=== PATIENT | male | born 1990 | race Two or more races ===

== ENCOUNTER 2021-04-19 08:01 | Inpatient (IN) | payer MEDICAID ==
[~2021-04-19] VITALS: Ht 172.7 cm; Wt 47.2 kg
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
--- NOTE | 2021-04-19 08:19 | NUR ---
UNABLE TO ESTABLISHED IV LINE. AWARE.
[2021-04-19] MEDS ORDERED: THIAMINE HCL 100 MG TABLET PO ONE (08:30)
[2021-04-19] MEDS ORDERED: IV NS 0.9% 1,000 ML IV ONE ×2 (08:30→14:30)
[2021-04-19] MEDS ORDERED: FOLIC ACID 1 MG TABLET PO ONE (08:30)
--- NOTE | 2021-04-19 08:33 | NUR ---
THE PATIENT IS TAKEN TO CT [facility]IA [facility]
--- NOTE | 2021-04-19 09:00 | NUR ---
THE PATIENT IS BACK FROM CT VIA [facility]
--- NOTE | 2021-04-19 09:11 | NUR ---
URINE COLLECTED AND SENT TO THE LAB
--- NOTE | 2021-04-19 09:30 | NUR ---
FOLATE AND THIAMINE NOT ADMINISTER YET DUE TO PATIENT IS SLEEPING. WILL OFFER THE MED ONCE THE PATIENT IS AWAKE. DR GUTHRIE AWARE.
[2021-04-19] MEDS ORDERED: THIAMINE HCL 100 MG TABLET ONE (09:32)
[2021-04-19] MEDS ORDERED: FOLIC ACID 1 MG TABLET ONE (09:32)
[2021-04-19 09:58] LABS: BILIRUBIN,URINE NEGATIVE (NEGATIVE); COLOR,URINE YELLOW (YELLOW); LEUKOCYTE ESTERASE ,URINE NEGATIVE (NEGATIVE); NITRITE, URINE NEGATIVE (NEGATIVE); PROTEIN,URINE NEGATIVE (NEGATIVE); UGLUCOSE >=1000 mg/dL (NEGATIVE); UROBILINOGEN,URINE 0.2 EU/dL (0.2)
[2021-04-19 11:57] LABS: BACTERIA,URINE None seen /HPF (None Seen); RBC,URINE 0-2 /HPF (0-2); SQUAMOUS EPITHELIAL CELL,UR None Seen /HPF (None Seen); WBC,URINE NONE SEEN /HPF (0-3)
[2021-04-19 12:10] LABS: BASOPHILS % (AUTO) 0.1 % (0.0-2.0); HEMATOCRIT 36 % (39-51); HEMOGLOBIN 11.4 g/dL (13.5-17.5); LYMPHOCYTES # (AUTO) 1.2 K/uL (0.8-4.8); LYMPHOCYTES % (AUTO) 17.6 % (20.0-44.0); MEAN CORPUSCULAR HGB CONC 32 g/dl (31.0-36.0); MEAN CORPUSCULAR VOLUME 82 fL (80-96); MONOCYTES # (AUTO) 0.4 K/uL (0.1-1.30); MONOCYTES % (AUTO) 5.9 % (2.0-12.0); NEUTROPHILS # (AUTO) 5.3 K/uL (1.8-8.9); NEUTROPHILS % (AUTO) 76.4 % (43.0-81.0); PLATELET COUNT (AUTO) 143 K/uL (150-450); RED BLOOD CELL COUNT(AUTO) 4.35 MIL/uL (4.5-6.0); WHITE BLOOD COUNT (AUTO) 6.9 K/uL (4.3-11.0)
[2021-04-19 12:58] LABS: ALANINE AMINOTRANSFERASE 125 U/L (12-78); ALBUMIN 3.2 g/dL (3.4-5.0); ALCOHOL, BLOOD 58 mg/dL (0-0); ASPARTATE AMINOTRANSFERASE 84 U/L (15-37); BILIRUBIN,DIRECT 0.2 mg/dL (0.0-0.2); BILIRUBIN,TOTAL 0.3 mg/dL (0.2-1.0); CALCIUM, SERUM 8.2 mg/dL (8.5-10.1); CARBON DIOXIDE 21 mmol/L (21-32); CHLORIDE 94 mmol/L (98-107); CREATININE 0.9 mg/dL (0.6-1.3); POTASSIUM 3.4 mmol/L (3.5-5.1); SODIUM SERUM 132 mmol/L (136-145); TOTAL PROTEIN, SERUM 8.2 g/dL (6.4-8.2); UREA NITROGEN, BLOOD 14 mg/dL (7-18)
[2021-04-19 13:37] LABS: ALKALINE PHOSPHATASE 1235 U/L (46-116); GLUCOSE 516 mg/dL (74-106)
--- NOTE | 2021-04-19 15:25 | NUR ---
COVID ANTIGEN SWAB DONE AND SENT TO THE LAB
[2021-04-19] MEDS ORDERED: INSULIN REGULAR, HUMAN 100 UNIT/ML 10 ML VIAL SQ ONE (15:30)
[2021-04-19] MEDS ORDERED: CEFTRIAXONE 1 G in IV D5W 50 ML IV ONE (16:00)
[2021-04-19] MEDS ORDERED: VANCOMYCIN 1 GM in IV D5W 250 ML IV ONE (16:00)
[2021-04-19] MEDS ORDERED: CEFTRIAXONE 1GM BAG (ER ONLY) 50 ML IV ONE (16:11)
[2021-04-19 16:53] LABS: ACETAMINOPHEN < 2 ug/ml (10-30)
--- NOTE | 2021-04-19 18:27 | NUR ---
ROOM 118-1
[2021-04-19] MEDS ORDERED: ZOLPIDEM TARTRATE 5 MG TABLET PO PRN (18:30)
[2021-04-19] MEDS ORDERED: POTASSIUM CHLORIDE 20 MEQ TAB.PRT.SR PO ONE ×3 (18:30→20:03)
[2021-04-19] MEDS ORDERED: Z GUARD REMEDY 4 OZ OINT TP PRN (18:30)
[2021-04-19] MEDS ORDERED: MAGNESIUM HYDROXIDE 30 ML UDC PO PRN (18:30)
[2021-04-19] MEDS ORDERED: ONDANSETRON HCL/PF 4 MG/2 ML VIAL IVP PRN (18:30)
[2021-04-19] MEDS ORDERED: ACETAMINOPHEN 325 MG TABLET PO PRN (18:30)
--- NOTE | 2021-04-19 19:06 | NUR ---
BLOOD SUGAR CHECK IS 357. DR SCHOFIELD MADE AWARE.
--- NOTE | 2021-04-19 19:14 | NUR ---
DR SCHOFIELD GAVE A VERBAL ORDER FOR PT TO RECIEVED MORPHINE 2MG Q4H PRN
[2021-04-19] MEDS ORDERED: MORPHINE SULFATE INJ 2 MG/ML DISP.SYRIN ONE (19:51)
[2021-04-19] MEDS ORDERED: ONDANSETRON HCL/PF 4 MG/2 ML VIAL ONE (19:51)
[2021-04-19] MEDS: MORPHINE SULFATE INJ 2 MG/ML DISP.SYRIN IV PRN (20:09)
[2021-04-19] MEDS: BLOOD SUGAR DIAGNOSTIC 1 EACH STRIP IN SCH (21:05)
[2021-04-19] MEDS ORDERED: ENOXAPARIN SODIUM 40 MG/0.4 ML DISP.SYRIN SQ ONE (21:06)
[2021-04-19] MEDS ORDERED: INSULIN REGULAR, HUMAN 100 UNIT/ML 10 ML VIAL ONE (21:07)
[2021-04-19] MEDS: ENOXAPARIN SODIUM 40 MG/0.4 ML DISP.SYRIN SQ SCH (21:11)
[2021-04-19] MEDS: INSULIN REGULAR, HUMAN 100 UNIT/ML 3 ML VIAL SQ PRN (21:17)
[2021-04-19] MEDS ORDERED: INSULIN GLARGINE, 100 UNIT/ML CARTRIDGE SQ ONE (23:06)
--- NOTE | 2021-04-19 23:09 | NUR ---
REPORT GIVEN TO LUÍS
[2021-04-19] MEDS: INSULIN GLARGINE, 100 UNIT/ML CARTRIDGE SQ SCH (23:40)
--- NOTE | 2021-04-19 23:53 | NUR ---
PT TRANSFERED PER ACLS PROTOCOL
--- NOTE | 2021-04-19 23:55 | NUR ---
RN NOTES ADMITTED A 31 Y/O MALE PATIENT FROM ER VIA GURNEY A/O X3 ABLE TO MAKE NEEDS KNOW. COVID POSITIVE. VITAL SIGNS TAKEN AND RECORDED AFEBRILE. TRANSFER TO BED SAFELY. WITH IV ACCESS AT R JUGULAR #20 PATENT FLUSHES WELL. BODY ASSESSMENT DONE. IVF STARTED PNS@125CC/HR TOLERATING WELL. PICTURE TAKEN. ALL SAFETY MEASURES IN PLACE AT ALL TIMES. HOB ELEVATED. CALL LIGHT WITHIN REACH. BED ON LOWEST POSITION AND LOCKED. WILL CONTINUE TO MONITOR.
[2021-04-20 00:19] VITALS: BP 133/87
[2021-04-20] MEDS: IV NS 0.9% 1,000 ML IV PRN (00:19)
--- NOTE | 2021-04-20 01:00 | NUR ---
RN NOTES BS 207MG/DL 8UNITS PER SLIDING SCALE. PRN MORPHINE GIVEN. WILL CONTINUE TO MONITOR
[2021-04-20] MEDS: BLOOD SUGAR DIAGNOSTIC 1 EACH STRIP IN SCH ×6 (01:10→22:43)
[2021-04-20] MEDS: INSULIN REGULAR, HUMAN 100 UNIT/ML 3 ML VIAL SQ PRN ×6 (01:11→22:43)
[2021-04-20] MEDS: MORPHINE SULFATE INJ 2 MG/ML DISP.SYRIN IV PRN ×3 (01:14→13:46)
[2021-04-20 04:00] VITALS: BP 100/71
[2021-04-20] MEDS: MAG HYDROX/AL HYDROX/SIMETH 30 ML UDC PO PRN ×2 (04:40→15:49)
--- NOTE | 2021-04-20 06:45 | NUR ---
RN NOTES PATIENT REMAINS STABLE NO SIGNIFICANT CHANGES IN HEALTH CONDITION. ALL DUE MEDS GIVEN ORDERED. STILL WITH ONGOING IVF OF NS @125ML/HR TOLERATING WELL. ALL NEEDS ATTENDED PROMPTLY. ALL SAFETY MEASURES IN PLACE AT ALL TIMES. CALL LIGHT WITHIN REACH. BED ON LOWEST POSITION AND LOCKED. ENDORSED
[2021-04-20 08:00] VITALS: BP 117/71
[2021-04-20 08:16] LABS: BASOPHILS % (AUTO) 0.1 % (0.0-2.0); HEMATOCRIT 36 % (39-51); HEMOGLOBIN 11.8 g/dL (13.5-17.5); LYMPHOCYTES # (AUTO) 1.7 K/uL (0.8-4.8); LYMPHOCYTES % (AUTO) 28.6 % (20.0-44.0); MEAN CORPUSCULAR HGB CONC 33 g/dl (31.0-36.0); MEAN CORPUSCULAR VOLUME 81 fL (80-96); MONOCYTES # (AUTO) 0.4 K/uL (0.1-1.30); MONOCYTES % (AUTO) 6.4 % (2.0-12.0); NEUTROPHILS # (AUTO) 3.8 K/uL (1.8-8.9); NEUTROPHILS % (AUTO) 64.9 % (43.0-81.0); PLATELET COUNT (AUTO) 139 K/uL (150-450); RED BLOOD CELL COUNT(AUTO) 4.45 MIL/uL (4.5-6.0); WHITE BLOOD COUNT (AUTO) 5.9 K/uL (4.3-11.0)
[2021-04-20] MEDS: FOLIC ACID 1 MG TABLET PO SCH (09:01)
[2021-04-20] MEDS: PANTOPRAZOLE 40 MG TABLET.DR PO SCH (09:01)
[2021-04-20] MEDS: THIAMINE HCL 100 MG TABLET PO SCH (09:02)
[2021-04-20 09:21] LABS: ALBUMIN 2.5 g/dL (3.4-5.0); BILIRUBIN,DIRECT 0.2 mg/dL (0.0-0.2); BILIRUBIN,TOTAL 0.3 mg/dL (0.2-1.0); CALCIUM, SERUM 7.6 mg/dL (8.5-10.1); CREATININE 0.6 mg/dL (0.6-1.3); MAGNESIUM 1.9 mg/dL (1.8-2.4); PHOSPHORUS 2.9 mg/dL (2.5-4.9); POTASSIUM 3.4 mmol/L (3.5-5.1); TOTAL PROTEIN, SERUM 6.6 g/dL (6.4-8.2)
[2021-04-20 16:00] VITALS: BP 100/71
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
[2021-04-20] MEDS: LORAZEPAM INJ 2 MG/ML VIAL IV PRN (18:04)
[2021-04-20] MEDS: CHLORDIAZEPOXIDE HCL 5 MG CAPSULE PO SCH (18:04)
--- NOTE | 2021-04-20 18:30 | NUR ---
RN NOTE BS 458- [address] SCHOFIELD.
--- NOTE | 2021-04-20 19:50 | NUR ---
RN OPENING NOTES PT RESTING IN BED, ROOM AIR SATURATING 96%, WITH NO LABOR BREATHING. IV ACCESS AT R JUGULAR #20 PATENT FLUSHES WELL. BODY ASSESSMENT DONE. IVF PNS@125CC/HR TOLERATING WELL.ALL ISOLATION PRECAUTIONS TAKEN. ALL SAFETY MEASURES IN PLACE AT ALL TIMES. HOB ELEVATED. CALL LIGHT WITHIN REACH. BED ON LOWEST POSITION AND LOCKED. WILL CONTINUE TO MONITOR.
[2021-04-20] MEDS: INSULIN GLARGINE, 100 UNIT/ML CARTRIDGE SQ SCH (22:39)
[2021-04-20] MEDS: ENOXAPARIN SODIUM 40 MG/0.4 ML DISP.SYRIN SQ SCH (22:41)
[2021-04-21] VITALS: BP 95/56
[2021-04-21] MEDS: INSULIN REGULAR, HUMAN 100 UNIT/ML 3 ML VIAL SQ PRN ×4 (00:37→22:15)
[2021-04-21] MEDS: BLOOD SUGAR DIAGNOSTIC 1 EACH STRIP IN SCH ×6 (00:38→22:14)
[2021-04-21] MEDS: LORAZEPAM INJ 2 MG/ML VIAL IV PRN ×4 (00:43→19:51)
[2021-04-21] MEDS: IV NS 0.9% 1,000 ML IV PRN ×3 (02:51→22:51)
[2021-04-21] MEDS: DEXTROSE 50%-WATER 50 ML DISP.SYRIN IV PRN ×2 (05:21→06:13)
--- NOTE | 2021-04-21 05:21 | NUR ---
RN NOTE BG WAS 39 DEXTROSE 50 GIVEN
--- NOTE | 2021-04-21 05:51 | NUR ---
RN NOTE REASSESED PATIENTS BG , IT WAS 161. WILL CONTINUE TO MONITOR PATIENT AND ENDORSE TO AM NURSE.
--- NOTE | 2021-04-21 07:45 | NUR ---
RN OPENING NOTES RECEIVED PATIENT AWAKE, ALERT/ORIENTED X 2-3. PATIENT ON ROOM AIR. BREATHING EVEN AND UNLABORED. NO SOB OR ANY ACUTE DISTRESS NOTED. IV ACCESS ON RIGHT NECK #20G, PATENT AND INTACT, INFUSING NS AT 125 ML/HR. ALL APPLICABLE ISOLATION PRECAUTIONS IN PLACE. ALL SAFETY MEASURES IN PLACED. HOB ELEVATED. BED IN LOCKED AND LOWEST POSITION WITH SIDERAILS UP, CALL LIGHT WITHIN REACH. WILL CONTINUE TO MONITOR PATIENT ACCORDINGLY.
[2021-04-21 08:00] VITALS: BP 104/77
--- NOTE | 2021-04-21 08:30 | NUR ---
RN CLOSING NOTE ALL PATIENT NEEDS MET, KEPT PATIENT DRY AND CLEAN. ALL ACCU CHECKS PERFORMED, INSULIN GIVEN AND ALSO DEXTROSE 50 GIVEN WHEN BLOOD GLUCOSE WAS 39. COMMUNICATED ALL PATIENT CHANGES WITH ONCOMING AM NURSE. ALL ISOLATION PRECAUTIONS TAKEN ALONG WITH ENVIRONMENTAL SAFETY. WILL ENDORSE CARE TO AM NURSE.
[2021-04-21] MEDS: CHLORDIAZEPOXIDE HCL 5 MG CAPSULE PO SCH ×3 (08:43→16:41)
[2021-04-21] MEDS: PANTOPRAZOLE 40 MG TABLET.DR PO SCH (08:44)
[2021-04-21] MEDS: THIAMINE HCL 100 MG TABLET PO SCH (08:44)
[2021-04-21] MEDS: FOLIC ACID 1 MG TABLET PO SCH (08:44)
[2021-04-21] MEDS: NICOTINE PATCH (21MG) 21 MG PATCH.TD24 TD SCH (08:44)
[2021-04-21 16:00] VITALS: BP 101/64
--- NOTE | 2021-04-21 19:15 | NUR ---
RN CLOSING NOTES PATIENT REMAINS IN STABLE CONDITION THROUGH SHIFT. NO SIGNIFICANT CHANGES THROUGHOUT SHIFT. NO SOB OR ACUTE DISTRESS NOTED ON ROOM AIR, TOLERATING WELL SATURATION 98%. IV ACCESS ON RIGHT IJ #20, PATENT AND INTACT INFUSING NS @ 125 ML/HR. DENIES ANY PAIN/DISCOMFORT. KEPT PATIENT CLEAN,DRY AND COMFORTABLE. ACCU-CHECKS DONE, INSULIN COVERAGE GIVEN PER ORDERED. ALL MEDS GIVEN ORDERED. ALL NEEDS ATTENDED. ALL APPLICABLE ISOLATION PRECAUTIONS MAINTAINED. ALL SAFETY MEASURES IN PLACE. HOB ELEVATED, BED LOCKED AND IN LOWE POSITION WITH SIDERAILS UP, CALL LIGHT WITHIN REACH OF PATIENT. WILL ENDORSE TO ONCOMING NURSE FOR CONTINUITY OF CARE.
[2021-04-21 20:00] VITALS: BP 90/54
--- NOTE | 2021-04-21 20:15 | NUR ---
RN NOTE PATIENT AWAKE, ALERT AND ORIENTED X2-3. NO S/S OF ANY RESPIRATORY DISTRESS. IV ACCESS ON RIGHT IJ #20G, PATENT AND INTACT, INFUSING NS AT 125 ML/HR. PATIENT REQUESTED FOR ATIVAN, ADMINISTERED ATIVAN PRN ORDERED. WARM BLANKET GIVEN. BED LOCKED AND IN LOWEST POSITION. CALL LIGHT WITHIN REACH. ALL NEEDS ANTICIPATED.
[2021-04-21 20:41] LABS: BASOPHILS % (AUTO) 0.2 % (0.0-2.0); EOSINOPHILS % (AUTO) 0.1 % (0.0-6.0); HEMATOCRIT 35 % (39-51); HEMOGLOBIN 11.3 g/dL (13.5-17.5); LYMPHOCYTES # (AUTO) 1.8 K/uL (0.8-4.8); LYMPHOCYTES % (AUTO) 39.4 % (20.0-44.0); MEAN CORPUSCULAR HGB CONC 33 g/dl (31.0-36.0); MEAN CORPUSCULAR VOLUME 82 fL (80-96); MONOCYTES # (AUTO) 0.4 K/uL (0.1-1.30); MONOCYTES % (AUTO) 9.5 % (2.0-12.0); NEUTROPHILS # (AUTO) 2.3 K/uL (1.8-8.9); NEUTROPHILS % (AUTO) 50.8 % (43.0-81.0); PLATELET COUNT (AUTO) 140 K/uL (150-450); RED BLOOD CELL COUNT(AUTO) 4.22 MIL/uL (4.5-6.0); WHITE BLOOD COUNT (AUTO) 4.6 K/uL (4.3-11.0)
[2021-04-21 21:47] LABS: CALCIUM, SERUM 7.3 mg/dL (8.5-10.1); CREATININE 0.6 mg/dL (0.6-1.3)
[2021-04-21 21:48] LABS: POTASSIUM 2.8 mmol/L (3.5-5.1)
[2021-04-21 21:53] LABS: ALBUMIN 2.6 g/dL (3.4-5.0); BILIRUBIN,DIRECT 0.1 mg/dL (0.0-0.2); BILIRUBIN,TOTAL 0.2 mg/dL (0.2-1.0); TOTAL PROTEIN, SERUM 6.9 g/dL (6.4-8.2)
[2021-04-21 22:00] LABS: MAGNESIUM 1.9 mg/dL (1.8-2.4); PHOSPHORUS 2.5 mg/dL (2.5-4.9)
[2021-04-21] MEDS ORDERED: diphenhydrAMINE HCL ELIX 25 MG/10 ML UDC PO PRN (22:00)
[2021-04-21] MEDS ORDERED: POTASSIUM CHLORIDE 20 MEQ TAB.PRT.SR PO ONE (22:00)
--- NOTE | 2021-04-21 22:00 | NUR ---
Critical K+ 2.8 relayed to MARINO Caceres via phone. Awaiting order.
--- NOTE | 2021-04-21 22:11 | NUR ---
Orders obtained from MARINO Caceres, noted and carried out.
[2021-04-21] MEDS: MUPIROCIN OINT 2% 22 GM TUBE NS SCH (22:14)
[2021-04-21] MEDS: INSULIN GLARGINE, 100 UNIT/ML CARTRIDGE SQ SCH (22:16)
[2021-04-21] MEDS: ENOXAPARIN SODIUM 40 MG/0.4 ML DISP.SYRIN SQ SCH (22:45)
[2021-04-22] VITALS: BP 92/51
[2021-04-22] MEDS: BLOOD SUGAR DIAGNOSTIC 1 EACH STRIP IN SCH ×4 (00:57→11:29)
[2021-04-22] MEDS: INSULIN REGULAR, HUMAN 100 UNIT/ML 3 ML VIAL SQ PRN ×4 (00:58→11:32)
[2021-04-22 04:00] VITALS: BP 101/69
--- NOTE | 2021-04-22 06:49 | NUR ---
RN NOTE PATIENT RESTING IN BED, ON ROOM AIR, NO S/S OF ANY RESPIRATORY DISTRESS. IV ACCESS ON RIGHT IJ #20G, PATENT AND INTACT, INFUSING NS AT 125 ML/HR. NO S/S OF ANY HYPOGLYCEMIA/HYPERGLYCEMIA DURING THIS SHIFT. KEPT CLEAN AND DRY. ALL NEEDS ATTENDED PROMPTLY. BED LOCKED AND IN LOWEST POSITION. CALL LIGHT WITHIN REACH. WILL ENDORSE TO AM SHIFT.
--- NOTE | 2021-04-22 07:30 | NUR ---
RN NOTE PATIENT RECEIVED RESTING IN BED, ON ROOM AIR, NO S/S OF ANY RESPIRATORY DISTRESS. IV ACCESS ON RIGHT IJ #20G, PATENT AND INTACT, INFUSING NS AT 125 ML/HR. NO S/S OF ANY HYPOGLYCEMIA/HYPERGLYCEMIA . BED LOCKED AND IN LOWEST POSITION. CALL LIGHT WITHIN REACH. WILL DANITZA.
[2021-04-22 08:00] VITALS: BP 103/64
[2021-04-22] MEDS: PANTOPRAZOLE 40 MG TABLET.DR PO SCH (08:04)
[2021-04-22] MEDS: IV NS 0.9% 1,000 ML IV PRN (08:06)
[2021-04-22] MEDS: THIAMINE HCL 100 MG TABLET PO SCH (08:11)
[2021-04-22] MEDS: FOLIC ACID 1 MG TABLET PO SCH (08:11)
[2021-04-22] MEDS: CHLORDIAZEPOXIDE HCL 5 MG CAPSULE PO SCH ×2 (08:11→12:25)
[2021-04-22] MEDS: MUPIROCIN OINT 2% 22 GM TUBE NS SCH (08:12)
[2021-04-22] MEDS: LORAZEPAM INJ 2 MG/ML VIAL IV PRN (08:24)
--- NOTE | 2021-04-22 08:24 | NUR ---
RN NOTE PT REPORT ANXIETY AND REQUEST ATIVAN, ATIVAN PROVIDED AND WILL REASSESS IN 45 MIN.
--- NOTE | 2021-04-22 08:24 | NUR ---
RN NOTE I WITHDRAW THE ATIVAN FROM OMNICELL AND WASTE IT WITH WITNESS AYE CHENG AND DISCARD THE VILE ACCIDENTLY BEFORE I SCAN IT. ENTER THE BARCODE MANUALLY, EVELIO CHARGE NURSE NOTIFIED. CALLED THE PHARMACY AND REPORT IT TO CAMELIA WELL.
[2021-04-22 08:31] LABS: BASOPHILS % (AUTO) 0.3 % (0.0-2.0); EOSINOPHILS % (AUTO) 0.2 % (0.0-6.0); HEMATOCRIT 34 % (39-51); LYMPHOCYTES # (AUTO) 1.6 K/uL (0.8-4.8); LYMPHOCYTES % (AUTO) 38.3 % (20.0-44.0); MEAN CORPUSCULAR HGB CONC 32 g/dl (31.0-36.0); MEAN CORPUSCULAR VOLUME 82 fL (80-96); MONOCYTES # (AUTO) 0.4 K/uL (0.1-1.30); MONOCYTES % (AUTO) 8.9 % (2.0-12.0); NEUTROPHILS # (AUTO) 2.2 K/uL (1.8-8.9); NEUTROPHILS % (AUTO) 52.3 % (43.0-81.0); PLATELET COUNT (AUTO) 115 K/uL (150-450); RED BLOOD CELL COUNT(AUTO) 4.11 MIL/uL (4.5-6.0); WHITE BLOOD COUNT (AUTO) 4.3 K/uL (4.3-11.0)
[2021-04-22] MEDS: NICOTINE PATCH (21MG) 21 MG PATCH.TD24 TD SCH (08:54)
--- NOTE | 2021-04-22 09:15 | NUR ---
RN NOTE ASSESS PT IN 45 MIN, PT CALM, AND ASLEEP IN BED
[2021-04-22 09:16] LABS: ALBUMIN 2.6 g/dL (3.4-5.0); BILIRUBIN,DIRECT 0.1 mg/dL (0.0-0.2); BILIRUBIN,TOTAL 0.2 mg/dL (0.2-1.0); CALCIUM, SERUM 7.4 mg/dL (8.5-10.1); CREATININE 0.5 mg/dL (0.6-1.3); MAGNESIUM 1.9 mg/dL (1.8-2.4); PHOSPHORUS 2.8 mg/dL (2.5-4.9); POTASSIUM 3.4 mmol/L (3.5-5.1); TOTAL PROTEIN, SERUM 6.9 g/dL (6.4-8.2)
--- NOTE | 2021-04-22 11:30 | NUR ---
RN NOTE CHECK BLOOD SUGAR AT 11:30, BS IS 389, 20 UNIT INSULIN GIVEN. REPORT TO CHARGE NURSE EVELIO. PT DOESN'T COMPLAIN OF DISCOMFORT AND ANY S/SX OF HYPERGLYCEMIA.
--- NOTE | 2021-04-22 13:02 | NUR ---
patient unable to wait for md to placed discharge order and dc instruction,in a hurry to leave hospital scm made aware ,pt signed homeless waiver,ashish isolation instruction given patient signed amfarrah. Addendum: 04/22/21 at 1858 by LEORA PACE RN Unique Id: [id number]
--- NOTE | 2021-04-23 11:34 | NUR ---
SW received consult for homelessness. Pt. was discharged from hospital. SW was not able to meet with pt.
== END 2021-04-22 13:01 | disposition left against medical advice (07) | DRG 420 ==
LOC: ER 08:07 → TELE1 23:35 → MEDSG1 04-20 10:36
PROVIDERS: ADMIT Student in an Organized Health Care Education/Training Program; ATTEND Nurse Practitioner Acute Care
DX: E11.10 Type 2 diabetes mellitus with ketoacidosis without coma (principal); U07.1 COVID-19; E44.1 Mild protein-calorie malnutrition; S02.2XXA Fracture of nasal bones, initial encounter for closed fracture; E87.1 Hypo-osmolality and hyponatremia; D64.9 Anemia, unspecified; E86.0 Dehydration; F10.129 Alcohol abuse with intoxication, unspecified; S22.32XA Fracture of one rib, left side, initial encounter for closed fracture; Y90.2 Blood alcohol level of 40-59 mg/100 ml; E87.6 Hypokalemia; Y04.0XXA Assault by unarmed brawl or fight, initial encounter; Z68.1 Body mass index [BMI] 19.9 or less, adult; Y04.2XXA Assault by strike against or bumped into by another person, initial encounter; Y92.9 Unspecified place or not applicable; F17.200 Nicotine dependence, unspecified, uncomplicated; F19.10 Other psychoactive substance abuse, uncomplicated; Z59.00 Homelessness unspecified; R74.01 Elevation of levels of liver transaminase levels
CPT/HCPCS: 36415; 70450-TC; 70486-TC; 71045-TC; 73110; 73130-TC; 80048-TC; 80074; 80076-TC; 81001; 82010-TC; 82945-TC; 82962-TC; 83735-TC; 84100-TC; 85025-TC; 87040-TC; 87081-TC; A6253; A6403; C9803; G0378; G0480; J0696; J1650; J1815; J2060; J2270; J2405; J3370; J7030; J7060; Q0163; U0003